=== PATIENT | female | born 1945 | race American Indian/Alaskan Native ===

== ENCOUNTER 2016-11-09 18:04 | Emergency (ER) | payer MEDICARE ==
[2016-11-09] MEDS ORDERED: MOTRIN PO ONE (19:32)
--- NOTE | 2016-11-09 19:58 | Emergency Department Report ---
ED Lower Extremity HPI - General Chief Complaint: Extremity Injury, Lower Stated Complaint: FELL/PAIN RT BIG TOE Time Seen by Provider: 11/09/16 19:16 Source: patient Mode of arrival: Ambulatory Limitations: No Limitations - History of Present Illness Initial Comments: Patient with history of hypertension states she missed a step and fell onto concrete 4 days ago landing on both knees. States she is having throbbing pain in her right great toe. States she is doesn't think it is broken as she is able to move her toes. Denies knee pain or discomfort. Denies weakness, tingling, numbness, fever, chills, break in skin. Denies taking any medication for this, states pain medicine doesn't work for her. Patient states she takes Losartan/HCTZ and is compliant with her meds. Denies s/sx of elevated BP. - Related Data Home Medications Medication Instructions Recorded Confirmed Last Taken Amlodipine Besylate 5 mg PO DAILY 08/22/13 03/19/16 01/01/16 05:00 Clopidogrel Bisulfate [Clopidogrel] 75 mg PO DAILY 08/22/13 03/19/16 12/25/15 Losartan Potassium 100 mg PO DAILY 08/22/13 03/19/16 01/01/16 05:00 Simvastatin 40 mg PO DAILY 08/22/13 03/19/16 12/30/15 Spironolactone [Aldactone] 25 mg PO DAILY 08/22/13 03/19/16 12/31/15 Tramadol HCl 50 mg PO PRN PRN 08/22/13 03/19/16 12/31/15 Aspirin [Aspirin BABY CHEW TAB] 81 mg PO DAILY 08/23/13 03/19/16 12/25/15 Cholecalciferol (Vitamin D3) 1,000 unit PO DAILY 08/23/13 03/19/16 12/31/15 [Vitamin D3] Hydrochlorothiazide [HCTZ] 25 mg PO QDAY 08/23/13 03/19/16 12/31/15 Ranitidine HCl [Ranitidine 150mg 150 mg PO BID 08/23/13 03/19/16 12/30/15 Cap] diphenhydrAMINE [Benadryl CAP] 50 mg PO PRN PRN 08/23/13 03/19/16 12/30/15 Cyclobenzaprine HCl [Flexeril 5mg] 5 mg PO Q8HR PRN 12/26/15 03/19/16 12/30/15 Previous Rx's Medication Instructions Recorded Last Taken Type Oxycodone HCl/Acetaminophen 1 each PO Q6HR PRN #20 tablet 03/05/14 12/30/15 Rx [Percocet 10-325 mg] Cyclobenzaprine [Flexeril] 10 mg PO TID PRN #14 tablet 03/19/16 Unknown Rx HYDROcodone/APAP 5-325 [[employer] 1 - 2 each PO Q6HR PRN #14 tablet 03/19/16 Unknown Rx 5/325] HYDROcodone/APAP 5-325 [[employer] 1 each PO Q6HR PRN #8 tablet 09/14/16 Unknown Rx 5/325] Ibuprofen [Motrin 800 MG tab] 800 mg PO Q8HR PRN #30 tablet 09/14/16 Unknown Rx Ibuprofen [Motrin 800 MG tab] 800 mg PO Q8HR PRN #20 tablet 11/09/16 Unknown Rx Allergies Allergy/AdvReac Type Severity Reaction Status Date / Time codeine AdvReac Mild Itching Verified 08/30/13 07:25 morphine AdvReac Mild Itching Verified 08/30/13 07:25 ED Review of Systems ROS: Stated complaint: FELL/PAIN RT BIG TOE Other details as noted in HPI Comment: All other systems reviewed and negative ED Past Medical Hx - Past Medical History Previous Medical History?: Yes Hx Hypertension: Yes (1961) Hx CVA: Yes Hx Heart Attack/AMI: No Hx GERD: Yes Hx Renal Disease: No Hx Arthritis: Yes Hx Seizures: No Hx Asthma: No Additional medical history: "nerve damage on my left side" - Surgical History Past Surgical History?: Yes Additional Surgical History: hyst. 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 "carotid surgery". ortho surg of left foot - Social History Smoking Status: Never Smoker Substance Use Type: None - Medications Home Medications: Home Medications Medication Instructions Recorded Confirmed Last Taken Type Amlodipine Besylate 5 mg PO DAILY 08/22/13 03/19/16 01/01/16 05:00 History Clopidogrel Bisulfate [Clopidogrel] 75 mg PO DAILY 08/22/13 03/19/16 12/25/15 History Losartan Potassium 100 mg PO DAILY 08/22/13 03/19/16 01/01/16 05:00 History Simvastatin 40 mg PO DAILY 08/22/13 03/19/16 12/30/15 History Spironolactone [Aldactone] 25 mg PO DAILY 08/22/13 03/19/16 12/31/15 History Tramadol HCl 50 mg PO PRN PRN 08/22/13 03/19/16 12/31/15 History Aspirin [Aspirin BABY CHEW TAB] 81 mg PO DAILY 08/23/13 03/19/16 12/25/15 History Cholecalciferol (Vitamin D3) 1,000 unit PO DAILY 08/23/13 03/19/16 12/31/15 History [Vitamin D3] Hydrochlorothiazide [HCTZ] 25 mg PO QDAY 08/23/13 03/19/16 12/31/15 History Ranitidine HCl [Ranitidine 150mg 150 mg PO BID 08/23/13 03/19/16 12/30/15 History Cap] diphenhydrAMINE [Benadryl CAP] 50 mg PO PRN PRN 08/23/13 03/19/16 12/30/15 History Oxycodone HCl/Acetaminophen 1 each PO Q6HR PRN #20 tablet 03/05/14 03/19/1612/11 Rx [Percocet 10-325 mg] Cyclobenzaprine HCl [Flexeril 5mg] 5 mg PO Q8HR PRN 12/26/15 03/19/16 12/30/15 History Cyclobenzaprine [Flexeril] 10 mg PO TID PRN #14 tablet 03/19/16 Unknown Rx HYDROcodone/APAP 5-325 [[employer] 1 - 2 each PO Q6HR PRN #14 tablet 03/19/16 Unknown Rx 5/325] HYDROcodone/APAP 5-325 [[employer] 1 each PO Q6HR PRN #8 tablet 09/14/16 Unknown Rx 5/325] Ibuprofen [Motrin 800 MG tab] 800 mg PO Q8HR PRN #30 tablet 09/14/16 Unknown Rx Ibuprofen [Motrin 800 MG tab] 800 mg PO Q8HR PRN #20 tablet 11/09/16 Unknown Rx ED Physical Exam - General Limitations: No Limitations General appearance: alert, in no apparent distress - Head Head exam: Present: atraumatic, normocephalic - Eye Eye exam: Present: normal appearance - Neck Neck exam: Present: normal inspection - Respiratory Respiratory exam: Present: normal lung sounds bilaterally. Absent: respiratory distress, chest wall tenderness - Cardiovascular Cardiovascular Exam: Present: regular rate, normal rhythm - GI/Abdominal GI/Abdominal exam: Present: soft. Absent: tenderness - Extremities Exam Extremities exam: Present: full ROM, tenderness (w/ mild swelling and ecchymosis media aspect of 1 MTP joint, right great toe.), normal capillary refill, joint swelling (media 1st MTP joint. Rests of foot exam unremarkable b/ l.). Absent: calf tenderness - Back Exam Back exam: Present: normal inspection. Absent: tenderness - Neurological Exam Neurological exam: Present: alert, oriented X3, normal gait, reflexes normal. Absent: motor sensory deficit - Psychiatric Psychiatric exam: Present: normal affect, normal mood - Skin Skin exam: Present: warm, dry, intact. Absent: rash, cyanosis, diaphoretic, erythema, petechiae, pallor, abrasion ED Course Vital Signs 11/09/16 11/09/16 18:28 20:09 Temperature 98.6 F Pulse Rate 83 Respiratory 18 20 Rate Blood Pressure 160/96 O2 Sat by Pulse 99 Oximetry ED Lower Extremity MDM - Radiology Data Radiology results: report reviewed According to radiology report of right foot x-ray, no fracture or dislocation ( see report for details). Critical care attestation.: If time is entered above; I have spent that time in minutes in the direct care of this critically ill patient, excluding procedure time. ED Disposition Clinical Impression: Sprain of metatarsophalangeal joint of great toe, Foot pain, right Disposition: DISCHARGED TO HOME OR SELFCARE Is pt being admited?: No Does the pt Need Aspirin: No Condition: Stable Instructions: Arthralgia (ED) Prescriptions: Ibuprofen [Motrin 800 MG tab] 800 mg PO Q8HR PRN #20 tablet PRN Reason: Pain Referrals: ZULY DE LA GARZA MD [Staff Physician] - 3-5 Days PRIMARY CARE, [Primary Care Provider] - 2-3 Days
--- NOTE | 2016-11-09 20:41 | XRay Report ---
FINAL REPORT EXAM: XR TOE(S) 2 RT HISTORY: R great toes pain and swelling. TECHNIQUE: 3 views right foot PRIORS: None. FINDINGS: No fracture or dislocation identified. Joint spaces are within normal limits. No radiopaque foreign body seen. No soft tissue abnormality identified. IMPRESSION: Negative foot series
[2016-11-09 20:58] VITALS: BP 145/88
== END 2016-11-09 21:04 | disposition home or self-care (01) ==
LOC: ED 18:04
DX: S93.521A Sprain of metatarsophalangeal joint of right great toe, initial encounter (principal); I10 Essential (primary) hypertension; K21.9 Gastro-esophageal reflux disease without esophagitis; Z86.73 Personal history of transient ischemic attack (TIA), and cerebral infarction without residual deficits; W20.8XXA Other cause of strike by thrown, projected or falling object, initial encounter; Y93.9 Activity, unspecified; Y92.9 Unspecified place or not applicable; Y99.9 Unspecified external cause status
CPT/HCPCS: 99283

== ENCOUNTER 2018-06-03 09:54 | Outpatient (CLI) | payer MEDICARE ==
[2018-06-03 10:34] LABS: Blood Urea Nitrogen 18 mg/dL (7-17)
--- NOTE | 2018-06-03 13:23 | Cat Scan Report ---
CT ABDOMEN PELVIS WITH AND WITHOUT CONTRAST: HISTORY: Abdominal pain and weight loss. COMPARISON: CT report dated 11/28/10. TECHNIQUE: Helical CT in 1.25mm intervals before and after IV contrast. Sagittal and coronal reconstructions. FINDINGS: Lung bases: Normal. Liver: Normal. Biliary system: Normal. Pancreas: Normal. Spleen: Normal. Kidneys/ureters/bladder: Normal. Adrenal glands: Normal. Aorta: Mild diffuse calcifications are noted. No aneurysm or dissection. Intestines: There are numerous diverticula in the left hemicolon. No evidence for acute inflammation, mass or obstruction. Appendix: Normal. Pelvic viscera: Hysterectomy. The ovaries are unremarkable. Ascites: None. Adenopathy: None. Musculoskeletal: Intact. Mild thoracolumbar spondylosis is noted. IMPRESSION: Unremarkable CT scan of the abdomen and pelvis with and without contrast. No clear explanation for abdominal pain or weight loss. Diverticulosis of the colon. Atherosclerotic disease in the aorta. Hysterectomy. Thoracolumbar spondylosis.
== END 2018-06-03 09:55 | disposition home or self-care (01) ==
LOC: CT 09:54
PROVIDERS: ATTEND Internal Medicine
DX: K57.90 Diverticulosis of intestine, part unspecified, without perforation or abscess without bleeding (principal); I70.0 Atherosclerosis of aorta; M47.895 Other spondylosis, thoracolumbar region; E78.00 Pure hypercholesterolemia, unspecified; I10 Essential (primary) hypertension; K21.9 Gastro-esophageal reflux disease without esophagitis; M19.90 Unspecified osteoarthritis, unspecified site; Z90.710 Acquired absence of both cervix and uterus; Z86.73 Personal history of transient ischemic attack (TIA), and cerebral infarction without residual deficits
CPT/HCPCS: 36415; 74178; 82565; 84520; Q9967

== ENCOUNTER 2018-06-25 18:21 | Emergency (ER) | payer MEDICARE ==
[2018-06-25 18:49] VITALS: BP 116/74
--- NOTE | 2018-06-25 20:41 | XRay Report ---
FINAL REPORT EXAM: XR KNEE 1-2V LT HISTORY: knee pain, swelling TECHNIQUE: Frontal and lateral views of left knee. PRIORS: None. FINDINGS: Mild degenerative changes in all 3 joint compartments, including spurring or dystrophic calcification/ossification adjacent to superolateral patellar pole. No apparent fracture or dislocation. Soft tissues grossly unremarkable. IMPRESSION: 1. No acute osseous abnormality. 2. Degenerative changes.
--- NOTE | 2018-06-25 21:41 | Emergency Department Report ---
ED Extremity Problem HPI - General Chief complaint: Extremity Problem,Nontraumatic Stated complaint: KNEE/PAIN Time Seen by Provider: 06/25/18 21:23 Source: patient Mode of arrival: Wheelchair Limitations: No Limitations - History of Present Illness Initial comments: 72-year-old [place] female comes in complaining of left knee pain and swelling. Patient denies any trauma. She does have a history of arthritis. She has been getting Percocet from Dr. Oconnor with her primary care provider. This the first time patient reports having an x-ray done on her knee. MD Complaint: extremity pain Location: left, knee History of Same: Yes Severity scale (0 -10): 7 - Related Data Home Medications Medication Instructions Recorded Confirmed Last Taken Amlodipine Besylate 5 mg PO DAILY 08/22/13 03/19/16 01/01/16 05:00 Clopidogrel Bisulfate [Clopidogrel] 75 mg PO DAILY 08/22/13 03/19/16 12/25/15 Losartan Potassium 100 mg PO DAILY 08/22/13 03/19/16 01/01/16 05:00 Simvastatin 40 mg PO DAILY 08/22/13 03/19/16 12/30/15 Spironolactone [Aldactone] 25 mg PO DAILY 08/22/13 03/19/16 12/31/15 Tramadol HCl 50 mg PO PRN PRN 08/22/13 03/19/16 12/31/15 Aspirin [Aspirin BABY CHEW TAB] 81 mg PO DAILY 08/23/13 03/19/16 12/25/15 Cholecalciferol (Vitamin D3) 1,000 unit PO DAILY 08/23/13 03/19/16 12/31/15 [Vitamin D3] diphenhydrAMINE [Benadryl CAP] 50 mg PO PRN PRN 08/23/13 03/19/16 12/30/15 hydroCHLOROthiazide [HCTZ] 25 mg PO QDAY 08/23/13 03/19/16 12/31/15 raNITIdine HCl [Ranitidine 150mg 150 mg PO BID 08/23/13 03/19/16 12/30/15 Cap] Cyclobenzaprine HCl [Flexeril 5mg] 5 mg PO Q8HR PRN 12/26/15 03/19/16 12/30/15 Previous Rx's Medication Instructions Recorded Last Taken Type Oxycodone HCl/Acetaminophen 1 each PO Q6HR PRN #20 tablet 03/05/14 12/30/15 Rx [Percocet 10-325 mg] Cyclobenzaprine [Flexeril] 10 mg PO TID PRN #14 tablet 03/19/16 Unknown Rx HYDROcodone/APAP 5-325 [[employer] 1 - 2 each PO Q6HR PRN #14 tablet 03/19/16 Unknown Rx 5/325] HYDROcodone/APAP 5-325 [[employer] 1 each PO Q6HR PRN #8 tablet 09/14/16 Unknown Rx 5/325] Ibuprofen [Motrin 800 MG tab] 800 mg PO Q8HR PRN #30 tablet 09/14/16 Unknown Rx Ibuprofen [Motrin 800 MG tab] 800 mg PO Q8HR PRN #20 tablet 11/09/16 Unknown Rx Ibuprofen [Motrin 600 MG tab] 600 mg PO Q8H PRN #30 tablet 06/25/18 Unknown Rx Allergies Allergy/AdvReac Type Severity Reaction Status Date / Time codeine AdvReac Mild Itching Verified 08/30/13 07:25 morphine AdvReac Mild Itching Verified 08/30/13 07:25 ED Review of Systems ROS: Stated complaint: KNEE/PAIN Other details as noted in HPI Musculoskeletal: joint swelling (left), arthralgia (left) ED Past Medical Hx - Past Medical History Hx Hypertension: Yes (1961) Hx CVA: Yes Hx Heart Attack/AMI: No Hx GERD: Yes Hx Renal Disease: No Hx Arthritis: Yes Hx Seizures: No Hx Asthma: No Additional medical history: "nerve damage on my left side" - Surgical History Past Surgical History?: Yes Additional Surgical History: hyst. 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 "carotid surgery". ortho surg of left foot - Social History Smoking Status: Never Smoker Substance Use Type: None - Medications Home Medications: Home Medications Medication Instructions Recorded Confirmed Last Taken Type Amlodipine Besylate 5 mg PO DAILY 08/22/13 03/19/16 01/01/16 05:00 History Clopidogrel Bisulfate [Clopidogrel] 75 mg PO DAILY 08/22/13 03/19/16 12/25/15 History Losartan Potassium 100 mg PO DAILY 08/22/13 03/19/16 01/01/16 05:00 History Simvastatin 40 mg PO DAILY 08/22/13 03/19/16 12/30/15 History Spironolactone [Aldactone] 25 mg PO DAILY 08/22/13 03/19/16 12/31/15 History Tramadol HCl 50 mg PO PRN PRN 08/22/13 03/19/16 12/31/15 History Aspirin [Aspirin BABY CHEW TAB] 81 mg PO DAILY 08/23/13 03/19/16 12/25/15 History Cholecalciferol (Vitamin D3) 1,000 unit PO DAILY 08/23/13 03/19/16 12/31/15 History [Vitamin D3] diphenhydrAMINE [Benadryl CAP] 50 mg PO PRN PRN 08/23/13 03/19/16 12/30/15 History hydroCHLOROthiazide [HCTZ] 25 mg PO QDAY 08/23/13 03/19/16 12/31/15 History raNITIdine HCl [Ranitidine 150mg 150 mg PO BID 08/23/13 03/19/16 12/30/15 History Cap] Oxycodone HCl/Acetaminophen 1 each PO Q6HR PRN #20 tablet 03/05/14 03/19/1612/11 Rx [Percocet 10-325 mg] Cyclobenzaprine HCl [Flexeril 5mg] 5 mg PO Q8HR PRN 12/26/15 03/19/16 12/30/15 History Cyclobenzaprine [Flexeril] 10 mg PO TID PRN #14 tablet 03/19/16 Unknown Rx HYDROcodone/APAP 5-325 [[employer] 1 - 2 each PO Q6HR PRN #14 tablet 03/19/16 Unknown Rx 5/325] HYDROcodone/APAP 5-325 [[employer] 1 each PO Q6HR PRN #8 tablet 09/14/16 Unknown Rx 5/325] Ibuprofen [Motrin 800 MG tab] 800 mg PO Q8HR PRN #30 tablet 09/14/16 Unknown Rx Ibuprofen [Motrin 800 MG tab] 800 mg PO Q8HR PRN #20 tablet 11/09/16 Unknown Rx Ibuprofen [Motrin 600 MG tab] 600 mg PO Q8H PRN #30 tablet 06/25/18 Unknown Rx ED Physical Exam - General Limitations: No Limitations General appearance: alert, in no apparent distress - Head Head exam: Present: atraumatic, normocephalic - Eye Eye exam: Present: normal appearance - ENT ENT exam: Present: mucous membranes moist - Respiratory Respiratory exam: Present: normal lung sounds bilaterally. Absent: respiratory distress - Cardiovascular Cardiovascular Exam: Present: regular rate, normal rhythm. Absent: systolic murmur, diastolic murmur, rubs, gallop - Expanded Lower Extremity Exam Left Upper Leg exam: Present: normal inspection, full ROM. Absent: tenderness Knee exam: Present: full ROM, tenderness, crepidus. Absent: swelling (medial aspect), abrasion, laceration, ecchymosis, deformity Lower Leg exam: Present: normal inspection, full ROM, tenderness. Absent: swelling Ankle exam: Present: normal inspection, full ROM. Absent: tenderness Neuro vascular tendon exam: Present: no vascular compromise - Neurological Exam Neurological exam: Present: alert, oriented X3 - Psychiatric Psychiatric exam: Present: normal affect, normal mood - Skin Skin exam: Present: warm, dry, intact, normal color. Absent: rash ED Course Vital Signs 06/25/18 18:47 Temperature 98.2 F Pulse Rate 89 Respiratory 20 Rate Blood Pressure 116/74 O2 Sat by Pulse 98 Oximetry ED Medical Decision Making - Radiology Data Radiology results: report reviewed FINAL REPORT EXAM: XR KNEE 1-2V LT HISTORY: knee pain, swelling TECHNIQUE: Frontal and lateral views of left knee. PRIORS: None. FINDINGS: Mild degenerative changes in all 3 joint compartments, including spurring or dystrophic calcification/ossification adjacent to superolateral patellar pole. No apparent fracture or dislocation. Soft tissues grossly unremarkable. IMPRESSION: 1. No acute osseous abnormality. 2. Degenerative changes. Transcribed By: [facility] Dictated By: EWELINA RAJAN MD Electronically Authenticated By: EWELINA RAJAN MD Signed Date/Time: 06/25/182038 DD/ 38 TD/TT: 06/25/182038 - Medical Decision Making Patient is evaluated by this provider fast track. Patient comes in with a nontraumatic left knee pain X-ray shows patient have degenerative joint disease Discussed the patient is with a chronic osteoarthritis Referral to orthopedist Prescription for Motrin Critical care attestation.: If time is entered above; I have spent that time in minutes in the direct care of this critically ill patient, excluding procedure time. ED Disposition Clinical Impression: Left knee DJD Qualifiers: Osteoarthritis type: primary Qualified Code(s): M17.12 - Unilateral primary osteoarthritis, left knee Disposition: TO HOME OR SELFCARE Is pt being admited?: No Does the pt Need Aspirin: No Condition: Stable Instructions: Osteoarthritis (ED), Self-Care Measures with a Chronic Disease ( ED) Additional Instructions: Please take pain medication as needed. Please follow up with her primary care provider or orthopedics. I have listed to below for your convenience Prescriptions: Ibuprofen [Motrin 600 MG tab] 600 mg PO Q8H PRN #30 tablet PRN Reason: Pain Referrals: AMBAR HATFIELD MD [Primary Care Provider] - 3-5 Days WINTER PAEZ MD [Staff Physician] - 3-5 Days ANDREIA SHAH MD [Staff Physician] - 3-5 Days Forms: Accompanied Note
== END 2018-06-25 22:04 | disposition home or self-care (01) ==
LOC: ED 18:21
DX: M17.12 Unilateral primary osteoarthritis, left knee (principal); K21.9 Gastro-esophageal reflux disease without esophagitis; Z79.82 Long term (current) use of aspirin; Z88.5 Allergy status to narcotic agent
CPT/HCPCS: 99283

== ENCOUNTER 2020-08-13 16:21 | Emergency (ER) | payer MEDICARE ==
[2020-08-13 17:08] VITALS: BP 142/70
== END 2020-08-13 19:40 | disposition left against medical advice (07) ==
LOC: ED 16:21
DX: R10.9 Unspecified abdominal pain (principal); Z53.21 Procedure and treatment not carried out due to patient leaving prior to being seen by health care provider

== ENCOUNTER 2021-10-24 11:12 | Emergency (ER) | payer MEDICARE ==
[2021-10-24] MEDS ORDERED: HYDROcodone/ACETAMINOPHEN 5-325 MG TAB PO ONE (12:45)
--- NOTE | 2021-10-24 12:52 | Emergency Department Report ---
ED General Adult HPI - General Chief complaint: Extremity Injury, Lower Stated complaint: PAIN Time Seen by Provider: 10/24/21 12:44 Source: patient Mode of arrival: Ambulatory Limitations: No Limitations - History of Present Illness Initial comments: 76-year-old -[place] female patient presents with complaints of bilateral leg pain and spasms starting last night. Patient states a history of recurrent leg spasms for many years. She states he normally takes Flexeril, however he has not been working lately. Patient states the pain is different in her legs this time and rates it as a 8/10 in severity. She is currently on Plavix. No history of DVT/PE, recent long travel/surgeries, chest pain, shortness of breath, or hemoptysis per patient. History of stomach cancer per patient. She also complains of sudden onset of right great toe pain for the past few days without injury. No history of gout. She also denies any fever/chills/sweats or difficulty moving her limbs or back pain. - Related Data Home Medications Medication Instructions Recorded Confirmed Last Taken Amlodipine Besylate 5 mg PO DAILY 08/22/13 03/19/16 01/01/16 05:00 Clopidogrel Bisulfate [Clopidogrel] 75 mg PO DAILY 08/22/13 03/19/16 12/25/15 Losartan Potassium 100 mg PO DAILY 08/22/13 03/19/16 01/01/16 05:00 Simvastatin 40 mg PO DAILY 08/22/13 03/19/16 12/30/15 Spironolactone [Aldactone] 25 mg PO DAILY 08/22/13 03/19/16 12/31/15 Tramadol HCl 50 mg PO PRN PRN 08/22/13 03/19/16 12/31/15 Aspirin [Aspirin BABY CHEW TAB] 81 mg PO DAILY 08/23/13 03/19/16 12/25/15 Cholecalciferol (Vitamin D3) 1,000 unit PO DAILY 08/23/13 03/19/16 12/31/15 [Vitamin D3] diphenhydrAMINE [Benadryl CAP] 50 mg PO PRN PRN 08/23/13 03/19/16 12/30/15 hydroCHLOROthiazide [HCTZ] 25 mg PO QDAY 08/23/13 03/19/16 12/31/15 raNITIdine HCL [Ranitidine 150mg 150 mg PO BID 08/23/13 03/19/16 12/30/15 Cap] Cyclobenzaprine HCl [Flexeril 5mg] 5 mg PO Q8HR PRN 12/26/15 03/19/16 12/30/15 Previous Rx's Medication Instructions Recorded Last Taken Type Oxycodone HCl/Acetaminophen 1 each PO Q6HR PRN #20 tablet 03/05/14 12/30/15 Rx [Percocet 10-325 mg] Cyclobenzaprine [Flexeril] 10 mg PO TID PRN #14 tablet 03/19/16 Unknown Rx HYDROcodone/APAP 5-325 [Jackson 1 - 2 each PO Q6HR PRN #14 tablet 03/19/16 Unknown Rx 5/325] HYDROcodone/APAP 5-325 [Jackson 1 each PO Q6HR PRN #8 tablet 09/14/16 Unknown Rx 5/325] Ibuprofen [Motrin 800 MG tab] 800 mg PO Q8HR PRN #30 tablet 09/14/16 Unknown Rx Ibuprofen [Motrin 800 MG tab] 800 mg PO Q8HR PRN #20 tablet 11/09/16 Unknown Rx Ibuprofen [Motrin 600 MG tab] 600 mg PO Q8H PRN #30 tablet 06/25/18 Unknown Rx methocarbamoL [Methocarbamol] 500 mg PO BID PRN #15 tab 10/24/21 Unknown Rx predniSONE 10 mg PO BID 3 Days #6 tab 10/24/21 Unknown Rx Allergies Allergy/AdvReac Type Severity Reaction Status Date / Time codeine AdvReac Mild Itching Verified 08/30/13 07:25 morphine AdvReac Mild Itching Verified 08/30/13 07:25 ED Review of Systems ROS: Stated complaint: PAIN Other details as noted in HPI Constitutional: denies: chills, diaphoresis, fever, malaise, weakness Musculoskeletal: joint swelling, arthralgia. 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 "carotid surgery". ortho surg of left foot - Social History Smoking Status: Never Smoker Substance Use Type: None - Medications Home Medications: Home Medications Medication Instructions Recorded Confirmed Last Taken Type Amlodipine Besylate 5 mg PO DAILY 08/22/13 03/19/16 01/01/16 05:00 History Clopidogrel Bisulfate [Clopidogrel] 75 mg PO DAILY 08/22/13 03/19/16 12/25/15 History Losartan Potassium 100 mg PO DAILY 08/22/13 03/19/16 01/01/16 05:00 History Simvastatin 40 mg PO DAILY 08/22/13 03/19/16 12/30/15 History Spironolactone [Aldactone] 25 mg PO DAILY 08/22/13 03/19/16 12/31/15 History Tramadol HCl 50 mg PO PRN PRN 08/22/13 03/19/16 12/31/15 History Aspirin [Aspirin BABY CHEW TAB] 81 mg PO DAILY 08/23/13 03/19/16 12/25/15 History Cholecalciferol (Vitamin D3) 1,000 unit PO DAILY 08/23/13 03/19/16 12/31/15 History [Vitamin D3] diphenhydrAMINE [Benadryl CAP] 50 mg PO PRN PRN 08/23/13 03/19/16 12/30/15 History hydroCHLOROthiazide [HCTZ] 25 mg PO QDAY 08/23/13 03/19/16 12/31/15 History raNITIdine HCL [Ranitidine 150mg 150 mg PO BID 08/23/13 03/19/16 12/30/15 History Cap] Oxycodone HCl/Acetaminophen 1 each PO Q6HR PRN #20 tablet 03/05/14 03/19/16 12/30/15 Rx [Percocet 10-325 mg] Cyclobenzaprine HCl [Flexeril 5mg] 5 mg PO Q8HR PRN 12/26/15 03/19/16 12/30/15 History Cyclobenzaprine [Flexeril] 10 mg PO TID PRN #14 tablet 03/19/16 Unknown Rx HYDROcodone/APAP 5-325 [Jackson 1 - 2 each PO Q6HR PRN #14 tablet 06/22/16 Unknown Rx 5/325] HYDROcodone/APAP 5-325 [Jackson 1 each PO Q6HR PRN #8 tablet 09/14/16 Unknown Rx 5/325] Ibuprofen [Motrin 800 MG tab] 800 mg PO Q8HR PRN #30 tablet 09/14/16 Unknown Rx Ibuprofen [Motrin 800 MG tab] 800 mg PO Q8HR PRN #20 tablet 11/09/16 Unknown Rx Ibuprofen [Motrin 600 MG tab] 600 mg PO Q8H PRN #30 tablet 06/25/18 Unknown Rx methocarbamoL [Methocarbamol] 500 mg PO BID PRN #15 tab 10/24/21 Unknown Rx predniSONE 10 mg PO BID 3 Days #6 tab 10/24/21 Unknown Rx ED Physical Exam - General Limitations: No Limitations General appearance: alert, in no apparent distress - Head Head exam: Present: atraumatic, normocephalic - Eye Eye exam: Present: normal appearance. Absent: scleral icterus - Neck Neck exam: Present: normal inspection - Respiratory Respiratory exam: Absent: respiratory distress - Cardiovascular Cardiovascular Exam: Present: regular rate, normal rhythm - Extremities Exam Extremities exam: Present: calf tenderness (bilateral, no skin changes noted ), other (ttp with mild warmth and redness noted to right first MT joint ) - Neurological Exam Neurological exam: Present: alert, oriented X3 - Psychiatric Psychiatric exam: Present: normal affect, normal mood - Skin Skin exam: Present: warm, dry, intact. Absent: rash ED Course Vital Signs 10/24/21 11:30 Temperature 97.9 F Pulse Rate 94 H Respiratory 18 Rate Blood Pressure 123/79 O2 Sat by Pulse 97 Oximetry ED Medical Decision Making - Lab Data Result diagrams: 10/24/21 14:34 10/24/21 14:34 Lab Results 10/24/21 10/24/21 Range/Units 14:34 14:34 WBC 8.3 (4.5-11.0) K/mm3 RBC 3.77 (3.65-5.03) M/mm3 Hgb 10.3 (10.1-14.3) gm/dl Hct 32.7 (30.3-42.9) % MCV 87 (79-97) fl MCH 27 L (28-32) pg MCHC 31 (30-34) % RDW 15.4 H (13.2-15.2) % Plt Count 271 (140-440) K/mm3 Lymph % (Auto) 26.8 (13.4-35.0) % Vil[place] % (Auto) 4.8 (0.0-7.3) % Eos % (Auto) 2.1 (0.0-4.3) % Baso % (Auto) 0.4 (0.0-1.8) % Lymph # (Auto) 2.2 (1.2-5.4) K/mm3 Vil[place] # (Auto) 0.4 (0.0-0.8) K/mm3 Eos # (Auto) 0.2 (0.0-0.4) K/mm3 Baso # (Auto) 0.0 (0.0-0.1) K/mm3 Seg Neutrophils % 65.9 (40.0-70.0) % Seg Neutrophils # 5.5 (1.8-7.7) K/mm3 Sodium 140 (137-145) mmol/L Potassium 4.3 (3.6-5.0) mmol/L Chloride 106.1 (98-107) mmol/L Carbon Dioxide 22 (22-30) mmol/L Anion Gap 16 mmol/L BUN 43 H (7-17) mg/dL Creatinine 1.4 H (0.6-1.2) mg/dL Estimated GFR 44 ml/min BUN/Creatinine Ratio 31 % Glucose 126 H (65-100) mg/dL Uric Acid 9.4 H (3.5-7.6) mg/dL Calcium 9.5 (8.4-10.2) mg/dL - Medical Decision Making 76-year-old -[place] female patient presents with complaints of bilateral leg pain and spasms starting last night. Patient states a history of recurrent leg spasms for many years. She states he normally takes Flexeril, however he has not been working lately. Patient states the pain is different in her legs this time and rates it as a 8/10 in severity. She is currently on Plavix. No history of DVT/PE, recent long travel/surgeries, chest pain, shortness of breath, or hemoptysis per patient. History of stomach cancer per patient. She also complains of sudden onset of right great toe pain for the past few days without injury. No history of gout. She also denies any fever/chills/sweats or difficulty moving her limbs or back pain. Mild kidney dysfunction noted on labs. Recommend patient follows up with her primary care, Dr. Hatfield, within 1 week for a recheck. Uric acid is elevated. Upon review of patient's prior visits, she had similar pain in 2018 in the same toe without injury. I suspect patient does have gout. Will treat with prednisone. She states her pain has resolved with meds given here in ED. She is well-appearing and stable for discharge home. Discussed signs and symptoms that should prompt immediate return to the ED with patient who verbalizes understand Critical care attestation.: If time is entered above; I have spent that time in minutes in the direct care of this critically ill patient, excluding procedure time. ED Disposition Clinical Impression: Gout involving toe Disposition: 01 HOME / SELF CARE / HOMELESS Is pt being admited?: No Condition: Stable Additional Instructions: What is gout? Gout is a form of arthritis. It can cause pain and swelling in the joints. At first, it tends to affect only 1 joint most frequently the big toe. It happens in people who have too much uric acid in the blood. Uric acid is a chemical that is produced when the body breaks down certain foods. Uric acid can form sharp needle-like crystals that build up in the joints and cause pain. Uric acid crystals can also form inside the tubes that carry urine from the kidneys to the bladder. These crystals can turn into "kidney stones" that can cause pain and problems with the flow of urine. What are the symptoms of gout? People with gout get sudden "flares" or attacks of severe pain, most often the big toe, ankle, or knee. Often the joint also turns red and swells. Usually, only 1 joint is affected, but some people have pain in more than 1 joint. Gout flares tend to happen more often during the night. The pain from gout can be extreme. The pain and swelling are worst at the beginning of a gout flare. The symptoms then get better within a few days to weeks. It is not clear how the body "turns off" a gout flare. Is there a test for gout? Yes. To test you for gout, your doctor or nurse can take a sample of fluid from the joint that is in pain. If they find typical gout crystals in the fluid, then you have gout. Even without checking fluid from a joint, the doctor or nurse might still strongly suspect gout if: ?You have had pain and swelling in 1 joint, especially the joint at the base of the big toe ?Your symptoms completely go away between flares, at least when you first start having them ?Your blood tests show high levels of uric acid How is gout treated? There are a few medicines that can reduce the pain and swelling caused by gout. When you find one that works for you, make sure to keep it on hand all the time. That way you can take it as soon you feel a flare starting. Gout medicines work best if you take them as soon as symptoms start. The medicines used to treat gout flares include: ?NSAIDs This is a large group of medicines that includes ibuprofen (sample brand names: Advil, Motrin) and indomethacin (brand name: Indocin). NSAIDs might not be safe for people with kidney or liver disease, or for people who have bleeding problems. ?Colchicine This medicine helps with gout but it can also cause diarrhea, nausea, vomiting, and stomach pain. ?Steroids Steroids can reduce swelling and pain. These steroids are not the kind that athletes take to build up muscle. Steroids can be taken as pills or as shots. Are there medicines to prevent gout flares? Yes, there are medicines that can reduce the chances of having future gout flares. Most people who have repeated or severe flares of gout need to take these medicines. In general, they all work by reducing the amount of uric acid in the blood. Examples of these medicines include allopurinol (brand names: Aloprim, Zyloprim), febuxostat (brand name: Uloric), and probenecid. People with severe gout can also get a medicine called pegloticase (brand name: Krystexxa), which is given through a vein. This medicine can cause an allergic reaction in some people. If you take one of the medicines to prevent gout, your doctor or nurse will want to make sure you use it safely. They might also want to check that your uric acid level gets low enough to dissolve the gout crystals. Allopurinol, febuxostat, and probenecid can actually increase gout flares when you first start taking them. To prevent these flares, your doctor or nurse might suggest that you take low doses of colchicine when you start the medicines. This will give the gout crystals time to dissolve, and that will put a stop to the flares over time. If you do have a gout flare, it's important to keep taking your daily medicines normally. Your doctor will check your uric acid levels regularly. This is to make sure the medicines are working and you are taking the right dose. Can I do anything on my own to prevent gout flares? Yes. If you are overweight, losing weight can help relieve gout. It's not clear that following a specific diet plan will help with gout symptoms. But eating a balanced diet can help improve your overall health. It can also help you lose weight, if you are overweight. In general, a healthy diet includes plenty of fruits, vegetables, whole grains, and low-fat dairy products. It's also important to drink plenty of water, and try not to get dehydrated. You should limit sugary drinks and alcohol, which can make gout flares worse. Some people with gout also have other health problems, such as heart disease, high blood pressure, kidney disease, or obesity. If you have any of these issues, it's important to work with your doctor to manage them. This can help improve your overall health and might also help with your gout. Prescriptions: methocarbamoL [Methocarbamol] 500 mg PO BID PRN #15 tab PRN Reason: muscle spasms predniSONE 10 mg PO BID 3 Days #6 tab Referrals: AMBAR HATFIELD MD [Primary Care Provider] - 3-5 Days
--- NOTE | 2021-10-24 13:27 | XRay Report ---
XR foot 3+V RT INDICATION: acute 1st MT pain, redness, swelling. COMPARISON: Prior exam 11/09/2016 FINDINGS: No acute fracture or dislocation. There is mild soft tissue swelling on the medial forefoot medial to the first MTP joint. There is diffuse joint space narrowing at the IP joints and first MTP joint. There is subtle cortical cystic change medial aspect of the first metatarsal head. IMPRESSION: 1. Joint space narrowing pattern is suggestive of osteoarthrosis. There is mild subcortical cystic ch james along the medial aspect of the first metatarsal head; however, no discrete erosion or cortical d estruction is seen. Mild adjacent soft tissue swelling is noted medially. Signer Name: Chaitanya Rich MD Signed: 10/24/2021 1:23 PM Workstation Name: [id number]
[2021-10-24 14:56] LABS: Basophils % (Auto) 0.4 % (0.0-1.8); Eosinophils # (Auto) 0.2 K/mm3 (0.0-0.4); Eosinophils % (Auto) 2.1 % (0.0-4.3); Hematocrit 32.7 % (30.3-42.9); Hemoglobin 10.3 gm/dl (10.1-14.3); Lymphocytes # (Auto) 2.2 K/mm3 (1.2-5.4); Lymphocytes % (Auto) 26.8 % (13.4-35.0); Mean Corpuscular HGB Conc 31 % (30-34); Mean Corpuscular Volume 87 fl (79-97); Monocytes # (Auto) 0.4 K/mm3 (0.0-0.8); Monocytes % (Auto) 4.8 % (0.0-7.3); Platelet Count 271 K/mm3 (140-440); Red Blood Count 3.77 M/mm3 (3.65-5.03); Red Cell Distribution Width 15.4 % (13.2-15.2)
[2021-10-24 15:10] LABS: Calcium 9.5 mg/dL (8.4-10.2); Uric Acid 9.4 mg/dL (3.5-7.6)
[2021-10-24 15:44] VITALS: BP 135/80
== END 2021-10-24 15:46 | disposition home or self-care (01) ==
LOC: ED 11:12
DX: M10.9 Gout, unspecified (principal); I10 Essential (primary) hypertension
CPT/HCPCS: 36415; 80048; 84550; 85025; 99283

== ENCOUNTER 2022-03-07 11:54 | Emergency (ER) | payer MEDICARE ==
--- NOTE | 2022-03-07 15:47 | Cat Scan Report ---
NONENHANCED CT SCAN OF THE HEAD: INDICATION / CLINICAL INFORMATION: 76 years Female; headache. TECHNIQUE: Routine CT head without contrast. All CT scans at this location are performed using CT dos e reduction for ALARA by means of automated exposure control. COMPARISON: None. FINDINGS: BRAIN / INTRACRANIAL CONTENTS: No acute hemorrhage, mass effect, midline shift, hydrocephalus, or acu te, large territorial infarct. 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 ORBITS: No significant abnormality of visualized orbits. SINUSES / MASTOIDS: No significant abnormality of the visualized paranasal sinuses or mastoid air mary ls. ADDITIONAL FINDINGS: None. 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
[2022-03-07] MEDS ORDERED: fentaNYL 100 MCG/2 ML INJ IV ONE (16:23)
[2022-03-07] MEDS ORDERED: ONDANSETRON 4 MG/2 ML INJ IV ONE (16:23)
[2022-03-07] MEDS ORDERED: SODIUM CHLORIDE 0.9% IV ONE (17:00)
[2022-03-07] MEDS ORDERED: METHOCARBAMOL IV ONE (17:00)
[2022-03-07] MEDS ORDERED: diphenhydrAMINE 50 MG/ML VIAL IV ONE (18:17)
[2022-03-07] MEDS ORDERED: METOCLOPRAMIDE 10 MG/2 ML INJ IV ONE (18:18)
[2022-03-07] MEDS ORDERED: BUTALB/ACETAMINOPHEN/CAFFEINE TAB PO ONE ×2 (18:18→19:10)
--- NOTE | 2022-03-07 18:41 | Emergency Department Report ---
ED General Adult HPI - General Chief complaint: Headache Stated complaint: NECK AND HEAD PAIN Time Seen by Provider: 03/07/22 15:53 Source: patient Mode of arrival: Ambulatory Limitations: No Limitations - History of Present Illness Initial comments: Patient presents to the emergency department the chief complaint of a headache that is been present for a day. Patient states she is taking Flexeril at home to no avail. Patient dates the headache is located in the back of her head and radiates down to her neck. She does complain of some dizziness with a headache. Patient states this headache is increased in intensity when compared to others. Patient denies chest pain, shortness breath, or abdominal pain. -: Sudden Location: head Severity scale (0 -10): 10 Quality: other (Throbbing) Consistency: constant Improves with: none Worsens with: none Treatments Prior to Arrival: none - Related Data Home Medications Medication Instructions Recorded Confirmed Last Taken Amlodipine Besylate 5 mg PO DAILY 08/22/13 03/19/16 01/01/16 05:00 Clopidogrel Bisulfate [Clopidogrel] 75 mg PO DAILY 08/22/13 03/19/16 12/25/15 Losartan Potassium 100 mg PO DAILY 08/22/13 03/19/16 01/01/16 05:00 Simvastatin 40 mg PO DAILY 08/22/13 03/19/16 12/30/15 Spironolactone [Aldactone] 25 mg PO DAILY 08/22/13 03/19/16 12/31/15 Tramadol HCl 50 mg PO PRN PRN 08/22/13 03/19/16 12/31/15 Aspirin [Aspirin BABY CHEW TAB] 81 mg PO DAILY 08/23/13 03/19/16 12/25/15 Cholecalciferol (Vitamin D3) 1,000 unit PO DAILY 08/23/13 03/19/16 12/31/15 [Vitamin D3] diphenhydrAMINE [Benadryl CAP] 50 mg PO PRN PRN 08/23/13 03/19/16 12/30/15 hydroCHLOROthiazide [HCTZ] 25 mg PO QDAY 08/23/13 03/19/16 12/31/15 raNITIdine HCL [Ranitidine 150mg 150 mg PO BID 08/23/13 03/19/16 12/30/15 Cap] Cyclobenzaprine HCl [Flexeril 5mg] 5 mg PO Q8HR PRN 12/26/15 03/19/16 12/30/15 Previous Rx's Medication Instructions Recorded Last Taken Type Oxycodone HCl/Acetaminophen 1 each PO Q6HR PRN #20 tablet 03/05/14 12/30/15 Rx [Percocet 10-325 mg] Cyclobenzaprine [Flexeril] 10 mg PO TID PRN #14 tablet 03/19/16 Unknown Rx HYDROcodone/APAP 5-325 [[place] 1 - 2 each PO Q6HR PRN #14 tablet 03/19/16 Unknown Rx 5/325] HYDROcodone/APAP 5-325 [[place] 1 each PO Q6HR PRN #8 tablet 09/14/16 Unknown Rx 5/325] Ibuprofen [Motrin 800 MG tab] 800 mg PO Q8HR PRN #30 tablet 09/14/16 Unknown Rx Ibuprofen [Motrin 800 MG tab] 800 mg PO Q8HR PRN #20 tablet 11/09/16 Unknown Rx Ibuprofen [Motrin 600 MG tab] 600 mg PO Q8H PRN #30 tablet 06/25/18 Unknown Rx methocarbamoL [Methocarbamol] 500 mg PO BID PRN #15 tab 10/24/21 Unknown Rx predniSONE 10 mg PO BID 3 Days #6 tab 10/24/21 Unknown Rx Butalb/Acetamin/Caff 50-325-40 1 tab PO Q6HR PRN #24 tab 03/07/22 Unknown Rx [Fioricet] Butalb/Acetamin/Caff 50-325-40 1 tab PO Q6HR PRN #24 tab 03/07/22 Unknown Rx [Fioricet] Butalb/Acetaminophen/Caffeine 1 cap PO Q6HR PRN #24 cap 03/07/22 Unknown Rx [Fioricet 50-300-40 mg CAP] methOCARBAMOL [Robaxin TAB] 500 mg PO BID #20 tab 03/07/22 Unknown Rx Allergies Allergy/AdvReac Type Severity Reaction Status Date / Time codeine AdvReac Mild Itching Verified 08/30/13 07:25 morphine AdvReac Mild Itching Verified 08/30/13 07:25 ED Review of Systems ROS: Stated complaint: NECK AND HEAD PAIN Other details as noted in HPI Comment: All other systems reviewed and negative Constitutional: denies: chills, fever Eyes: denies: eye pain, eye discharge, vision change ENT: denies: ear pain, throat pain Respiratory: denies: cough, shortness of breath, wheezing Cardiovascular: denies: chest pain, palpitations Endocrine: no symptoms reported Gastrointestinal: denies: abdominal pain, nausea, diarrhea Genitourinary: denies: urgency, dysuria, discharge Musculoskeletal: denies: back pain, joint swelling, arthralgia Skin: denies: rash, lesions Neurological: headache. 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 "carotid surgery". ortho surg of left foot - Social History Smoking Status: Never Smoker Substance Use Type: None - Medications Home Medications: Home Medications Medication Instructions Recorded Confirmed Last Taken Type Amlodipine Besylate 5 mg PO DAILY 08/22/13 03/19/16 01/01/16 05:00 History Clopidogrel Bisulfate [Clopidogrel] 75 mg PO DAILY 08/22/13 03/19/16 12/25/15 History Losartan Potassium 100 mg PO DAILY 08/22/13 03/19/16 01/01/16 05:00 History Simvastatin 40 mg PO DAILY 08/22/13 03/19/16 12/30/15 History Spironolactone [Aldactone] 25 mg PO DAILY 08/22/13 03/19/16 12/31/15 History Tramadol HCl 50 mg PO PRN PRN 08/22/13 03/19/16 12/31/15 History Aspirin [Aspirin BABY CHEW TAB] 81 mg PO DAILY 08/23/13 03/19/16 12/25/15 History Cholecalciferol (Vitamin D3) 1,000 unit PO DAILY 08/23/13 03/19/16 12/31/15 History [Vitamin D3] diphenhydrAMINE [Benadryl CAP] 50 mg PO PRN PRN 08/23/13 03/19/16 12/30/15 History hydroCHLOROthiazide [HCTZ] 25 mg PO QDAY 08/23/13 03/19/16 12/31/15 History raNITIdine HCL [Ranitidine 150mg 150 mg PO BID 08/23/13 03/19/16 12/30/15 History Cap] Oxycodone HCl/Acetaminophen 1 each PO Q6HR PRN #20 tablet 03/05/14 03/19/16 12/30/15 Rx [Percocet 10-325 mg] Cyclobenzaprine HCl [Flexeril 5mg] 5 mg PO Q8HR PRN 12/26/15 03/19/16 12/30/15 History Cyclobenzaprine [Flexeril] 10 mg PO TID PRN #14 tablet 03/19/16 Unknown Rx HYDROcodone/APAP 5-325 [[place] 1 - 2 each PO Q6HR PRN #14 tablet 03/19/16 Unknown Rx 5/325] HYDROcodone/APAP 5-325 [[place] 1 each PO Q6HR PRN #8 tablet 09/14/16 Unknown Rx 5/325] Ibuprofen [Motrin 800 MG tab] 800 mg PO Q8HR PRN #30 tablet 09/14/16 Unknown Rx Ibuprofen [Motrin 800 MG tab] 800 mg PO Q8HR PRN #20 tablet 11/09/16 Unknown Rx Ibuprofen [Motrin 600 MG tab] 600 mg PO Q8H PRN #30 tablet 06/25/18 Unknown Rx methocarbamoL [Methocarbamol] 500 mg PO BID PRN #15 tab 10/24/21 Unknown Rx predniSONE 10 mg PO BID 3 Days #6 tab 10/24/21 Unknown Rx Butalb/Acetamin/Caff 50-325-40 1 tab PO Q6HR PRN #24 tab 03/07/22 Unknown Rx [Fioricet] Butalb/Acetamin/Caff 50-325-40 1 tab PO Q6HR PRN #24 tab 03/07/22 Unknown Rx [Fioricet] Butalb/Acetaminophen/Caffeine 1 cap PO Q6HR PRN #24 cap 03/07/22 Unknown Rx [Fioricet 50-300-40 mg CAP] methOCARBAMOL [Robaxin TAB] 500 mg PO BID #20 tab 03/07/22 Unknown Rx ED Physical Exam - General Limitations: No Limitations General appearance: alert, in no apparent distress - Head Head exam: Present: atraumatic, normocephalic - Eye Eye exam: Present: normal appearance, PERRL - ENT ENT exam: Present: mucous membranes moist - Neck Neck exam: Present: normal inspection - Respiratory Respiratory exam: Present: normal lung sounds bilaterally. Absent: respiratory distress - Cardiovascular Cardiovascular Exam: Present: regular rate, normal rhythm. Absent: systolic murmur, diastolic murmur, rubs, gallop - GI/Abdominal GI/Abdominal exam: Present: soft, normal bowel sounds. Absent: distended, tenderness - Extremities Exam Extremities exam: Present: normal inspection - Back Exam Back exam: Present: normal inspection - Neurological Exam Neurological exam: Present: alert, oriented X3, CN II-XII intact. Absent: motor sensory deficit - Psychiatric Psychiatric exam: Present: normal affect, normal mood - Skin Skin exam: Present: warm, dry, intact, normal color. Absent: rash ED Course Vital Signs 03/07/22 03/07/22 03/07/22 12:10 15:26 15:31 Temperature 98.2 F Pulse Rate 101 H 94 H 92 H Respiratory 20 17 14 Rate Blood Pressure 139/67 136/67 O2 Sat by Pulse 98 99 Oximetry 03/07/22 03/07/22 03/07/22 15:45 16:01 16:15 Temperature Pulse Rate 89 89 87 Respiratory 19 15 14 Rate Blood Pressure 136/67 136/67 136/67 O2 Sat by Pulse 98 96 99 Oximetry 03/07/22 03/07/22 16:31 16:45 Temperature Pulse Rate 87 91 H Respiratory 16 17 Rate Blood Pressure 136/67 136/67 O2 Sat by Pulse 100 100 Oximetry ED Medical Decision Making - Radiology Data Radiology results: report reviewed - Medical Decision Making On repeat evaluation at approximately 7:05 PM the patient states her headaches completely resolved. The is resting in bed comfortably eating dinner Critical care attestation.: If time is entered above; I have spent that time in minutes in the direct care of this critically ill patient, excluding procedure time. ED Disposition Clinical Impression: Headache Disposition: 01 HOME / SELF CARE / HOMELESS Is pt being admited?: No Does the pt Need Aspirin: No Condition: Stable Instructions: General Headache Without Cause Additional Instructions: Please do not take Flexeril while you are taking Robaxin Prescriptions: Butalb/Acetaminophen/Caffeine [Fioricet 50-300-40 mg CAP] 1 cap PO Q6HR PRN #24 cap PRN Reason: Headache Butalb/Acetamin/Caff 50-325-40 [Fioricet] 1 tab PO Q6HR PRN #24 tab PRN Reason: Headache Butalb/Acetamin/Caff 50-325-40 [Fioricet] 1 tab PO Q6HR PRN #24 tab PRN Reason: Headache methOCARBAMOL [Robaxin TAB] 500 mg PO BID #20 tab Referrals: SCAR MALIK MD [Staff Physician] - 3-5 Days PRIMARY CAREMD [Primary Care Provider] - 3-5 Days Time of Disposition: 19:22
[2022-03-07 20:50] VITALS: BP 136/67
== END 2022-03-07 19:45 | disposition home or self-care (01) ==
LOC: ED 11:54
DX: R51.9 Headache, unspecified (principal); I10 Essential (primary) hypertension; Z88.6 Allergy status to analgesic agent
CPT/HCPCS: 70450; 96365; 96375; 99283; J1200; J2405; J2765; J2800; J3010; J7050

== ENCOUNTER 2022-05-15 15:43 | Emergency (ER) | payer MEDICARE ==
[2022-05-15 17:09] LABS: Basophils % (Auto) 0.6 % (0.0-1.8); Eosinophils # (Auto) 0.2 K/mm3 (0.0-0.4); Hematocrit 31.1 % (30.3-42.9); Hemoglobin 10.1 gm/dl (10.1-14.3); Lymphocytes # (Auto) 3.1 K/mm3 (1.2-5.4); Lymphocytes % (Auto) 36.7 % (13.4-35.0); Mean Corpuscular HGB Conc 32 % (30-34); Mean Corpuscular Volume 87 fl (79-97); Monocytes # (Auto) 0.4 K/mm3 (0.0-0.8); Monocytes % (Auto) 5.3 % (0.0-7.3); Platelet Count 235 K/mm3 (140-440); Red Blood Count 3.58 M/mm3 (3.65-5.03); Red Cell Distribution Width 15.5 % (13.2-15.2)
[2022-05-15 17:27] LABS: Alanine Aminotransferase 12 units/L (7-56); Albumin 4.4 g/dL (3.9-5); BUN/Creatinine Ratio 24; Blood Urea Nitrogen 39 mg/dL (7-17); Calcium 9.6 mg/dL (8.4-10.2); Hemolysis Index 6
--- NOTE | 2022-05-15 17:45 | XRay Report ---
CHEST 2 VIEWS INDICATION / CLINICAL INFORMATION: sob. COMPARISON: None available. FINDINGS: SUPPORT DEVICES: None. HEART / MEDIASTINUM: No significant abnormality. LUNGS / PLEURA: No significant pulmonary or pleural abnormality. No pneumothorax. ADDITIONAL FINDINGS: No significant additional findings. IMPRESSION: 1. No acute findings. Signer Name: Marck Gunter MD Signed: 05/15/2022 5:41 PM Workstation Name: [id number]
[2022-05-16] MEDS ORDERED: METOCLOPRAMIDE 10 MG/2 ML INJ IV ONE (01:10)
[2022-05-16] MEDS ORDERED: SODIUM CHLORIDE 0.9% 500 ML 500 ML IV ONE (01:10)
--- NOTE | 2022-05-16 01:11 | Emergency Department Report ---
ED General Adult HPI - General Chief complaint: Dyspnea/Respdistress Stated complaint: DIZZY/WEAK/SOB Time Seen by Provider: 05/16/22 00:59 Source: patient, RN notes reviewed, old records reviewed Mode of arrival: Ambulatory Limitations: No Limitations - History of Present Illness Initial comments: The patient was evaluated in the emergency department for symptoms described in the history of present illness. He/she was evaluated in the context of the global COVID-19 pandemic, which necessitated consideration that the patient might be at risk for infection with the virus that causes COVID-19. Institutional protocols and algorithms that pertain to the evaluation of patients at risk for COVID-19 are in a state of rapid change based on information released by regulatory bodies including the CDC and federal and state organizations. These policies and algorithms were followed during the patient's care in the emergency department. Please note that these policies, procedures and recommendations changed on a rapid basis. Primary care doctor: Dr. You Hatifeld Past medical history: Gastric cancer, took oral chemotherapy, stroke, residual minimal left-sided deficits, hypertension, possible high cholesterol, chronic pain syndrome. This patient is a 76-year-old female, with a history of cataracts, who presents to the department today with a complaint of nonspecific dizziness, shortness of breath, and generalized headache. There is no midline neck pain, chest pain, abdominal pain, vomiting, diaphoresis or urinary symptoms. She currently denies chest pain. She has not had chest pain. She is COVID-19 vaccinated. She denies loss of taste and smell. She reports she is on a number of chronic medications. She does not believe her chronic medications have been changed. She denies sick contacts. The headache is generalized, not sudden or thunderclap in nature, not maximal in intensity, not described as the worst headache of her life. There is no complaint of loss of vision, jaw Pain, or jaw claudication -: Gradual, days(s) Location: head Severity scale (0 -10): 0 Quality: aching Consistency: intermittent Improves with: rest Worsens with: movement - Related Data Home Medications Medication Instructions Recorded Confirmed Last Taken Amlodipine Besylate 5 mg PO DAILY 08/22/13 03/19/16 01/01/16 05:00 Clopidogrel Bisulfate [Clopidogrel] 75 mg PO DAILY 08/22/13 03/19/16 12/25/15 Losartan Potassium 100 mg PO DAILY 08/22/13 03/19/16 01/01/16 05:00 Simvastatin 40 mg PO DAILY 08/22/13 03/19/16 12/30/15 Spironolactone [Aldactone] 25 mg PO DAILY 08/22/13 03/19/16 12/31/15 Aspirin [Aspirin BABY CHEW TAB] 81 mg PO DAILY 08/23/13 03/19/16 12/25/15 Cholecalciferol (Vitamin D3) 1,000 unit PO DAILY 08/23/13 03/19/16 12/31/15 [Vitamin D3] diphenhydrAMINE [Benadryl CAP] 50 mg PO PRN PRN 08/23/13 03/19/16 12/30/15 hydroCHLOROthiazide [HCTZ] 25 mg PO QDAY 08/23/13 03/19/16 12/31/15 raNITIdine HCL [Ranitidine 150mg 150 mg PO BID 08/23/13 03/19/16 12/30/15 Cap] Previous Rx's Medication Instructions Recorded Last Taken Type predniSONE 10 mg PO BID 3 Days #6 tab 10/24/21 Unknown Rx Metoclopramide [Reglan] 10 mg PO QID PRN #30 tablet 05/16/22 Unknown Rx Allergies Allergy/AdvReac Type Severity Reaction Status Date / Time codeine AdvReac Mild Itching Verified 05/15/22 15:58 morphine AdvReac Mild Itching Verified 05/15/22 15:58 ED Review of Systems ROS: Stated complaint: DIZZY/WEAK/SOB Other details as noted in HPI Constitutional: denies: chills, fever Eyes: denies: eye discharge, vision change ENT: denies: epistaxis Respiratory: shortness of breath. denies: cough, wheezing Cardiovascular: denies: chest pain Gastrointestinal: denies: abdominal pain, vomiting, diarrhea Genitourinary: denies: dysuria Musculoskeletal: back pain, arthralgia, myalgia Skin: denies: lesions Neurological: headache, weakness (Chronic wound) Hematological/Lymphatic: denies: easy bleeding ED Past Medical Hx - Past Medical History Hx Hypertension: Yes (1961) Hx CVA: Yes Hx Heart Attack/AMI: No Hx GERD: Yes Hx Renal Disease: No Hx Arthritis: Yes Hx Seizures: No Hx Asthma: No Additional medical history: "nerve damage on my left side" - Surgical History Additional Surgical History: hyst. 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 "carotid surgery". ortho surg of left foot - Social History Smoking Status: Never Smoker Substance Use Type: None - Medications Home Medications: Home Medications Medication Instructions Recorded Confirmed Last Taken Type Amlodipine Besylate 5 mg PO DAILY 08/22/13 03/19/16 01/01/16 05:00 History Clopidogrel Bisulfate [Clopidogrel] 75 mg PO DAILY 08/22/13 03/19/16 12/25/15 History Losartan Potassium 100 mg PO DAILY 08/22/13 03/19/16 01/01/16 05:00 History Simvastatin 40 mg PO DAILY 08/22/13 03/19/16 12/30/15 History Spironolactone [Aldactone] 25 mg PO DAILY 08/22/13 03/19/16 12/31/15 History Aspirin [Aspirin BABY CHEW TAB] 81 mg PO DAILY 08/23/13 03/19/16 12/25/15 History Cholecalciferol (Vitamin D3) 1,000 unit PO DAILY 08/23/13 03/19/16 12/31/15 History [Vitamin D3] diphenhydrAMINE [Benadryl CAP] 50 mg PO PRN PRN 08/23/13 03/19/16 12/30/15 Hi story hydroCHLOROthiazide [HCTZ] 25 mg PO QDAY 08/23/13 03/19/16 12/31/15 History raNITIdine HCL [Ranitidine 150mg 150 mg PO BID 08/23/13 03/19/16 12/30/15 History Cap] predniSONE 10 mg PO BID 3 Days #6 tab 10/24/21 Unknown Rx Metoclopramide [Reglan] 10 mg PO QID PRN #30 tablet 05/16/22 Unknown Rx ED Physical Exam - General Limitations: No Limitations General appearance: alert, in no apparent distress - Head Head exam: Present: atraumatic, normocephalic - Eye Eye exam: Present: normal appearance, EOMI, other (Visual acuity is intact to finger counting and color perception at a close distance). Absent: nystagmus - ENT ENT exam: Present: normal exam, normal orophraynx, mucous membranes moist, normal external ear exam - Neck Neck exam: Present: normal inspection, full ROM. Absent: tenderness, meningismus - Respiratory Respiratory exam: Present: normal lung sounds bilaterally. Absent: respiratory distress, wheezes, rales, rhonchi, stridor, decreased breath sounds - Cardiovascular Cardiovascular Exam: Present: regular rate, normal rhythm, normal heart sounds. Absent: bradycardia, tachycardia, irregular rhythm, systolic murmur, diastolic murmur, rubs, gallop - GI/Abdominal GI/Abdominal exam: Present: soft. Absent: distended, tenderness, guarding, rebound, rigid, pulsatile mass - Extremities Exam Extremities exam: Present: normal inspection, full ROM, other (2+ pulses noted in the bilateral upper and lower extremities. There is no palpable cord. negative Homans sign. Muscular compartments are soft. The pelvis is stable.). Absent: pedal edema, calf tenderness - Back Exam Back exam: Present: normal inspection. Absent: tenderness, CVA tenderness (R), CVA tenderness (L), paraspinal tenderness, vertebral tenderness - Neurological Exam Neurological exam: Present: alert, oriented X3, normal gait, other (There is no facial droop. The tongue is midline. EOMI. 5 out of 5 strength in 4 extremities. There is no past-pointing. There is no pronator drift. There is normal [id number]. There is a steady gait) - Psychiatric Psychiatric exam: Present: anxious - Skin Skin exam: Present: warm, dry, intact, normal color. Absent: rash ED Course Vital Signs 05/15/22 05/15/22 05/16/22 15:54 21:57 00:57 Temperature 98.3 F 98.3 F Pulse Rate 93 H 95 H Respiratory 14 20 Rate Blood Pressure 158/72 173/74 [Right] O2 Sat by Pulse 100 100 100 Oximetry O2 Sat by Pulse Oximetry [ Digit-Finger] 05/16/22 05/16/22 05/16/22 01:01 01:15 01:31 Temperature Pulse Rate 85 85 87 Respiratory 14 16 13 Rate Blood Pressure [Right] O2 Sat by Pulse 100 Oximetry O2 Sat by Pulse Oximetry [ Digit-Finger] 05/16/22 05/16/22 05/16/22 01:45 02:25 02:31 Temperature Pulse Rate 84 Respiratory 11 L Rate Blood Pressure [Right] O2 Sat by Pulse 100 100 Oximetry O2 Sat by Pulse Oximetry [ Digit-Finger] 05/16/22 05/16/22 02:33 02:47 Temperature Pulse Rate 78 Respiratory 16 Rate Blood Pressure 138/66 [Right] O2 Sat by Pulse 98 Oximetry O2 Sat by Pulse 100 Oximetry [ Digit-Finger] - Reevaluation(s) Reevaluation #1: 05/16/22 02:16 Differential diagnosis, including but not limited to: Polypharmacy, orthostasis, obstructive sleep apnea, pneumonia, congestive heart failure, coronary artery disease, UTI, deconditioning, fibromyalgia Assessment and plan: 76-year-old female, who is clinically sober, with a GCS of 15, who is ambulatory with a steady gait, with an NIH score of 0, with nonspecific complaints of dizziness, headache, shortness of breath, without neck pain, chest pain, or abdominal pain. Her EKG is unchanged x2. She is a mbulatory with a steady gait, with no cerebellar signs. Troponin negative x1 in the context of days of symptoms. Advanced age and cardiovascular risk factors are reviewed and appreciated, but given lack of chest pain, vomiting, diaphoresis and exertional shortness of breath, EKG unchanged x2, I think atypical presentation of acute coronary syndrome is very unlikely. We will obtain noncontrast CT scan of the brain, treat her supportively and symptomatically. Laboratory studies remarkable for very mild dehydration. Oral fluids and IV fluids. We have requested patient's medications be reconciled. I am currently awaiting home medication list. I discussed this plan of care with the patient. She articulates understanding. 05/16/22 02:30 05/16/22 03:35 Home medications include Percocet 10/325 Valium 10 mg Irbesartan 150 mg Spironolactone 25 mg. Plavix 75 mg. Simvastatin 40 mg. Potassium chloride 10 M EQ's. Fioricet as needed Cyclobenzaprine Metoprolol 25. HCTZ 50. Benadryl 50 mg. Magnesium 400 mg Suspect polypharmacy component. Have advised patient is discussed with her primary care doctor, and de-escalate sedating medications. She is observed in this department for hours without clinical decompensation. - Pulse Oximetry Interpretation Digit-Finger Initial Pulse Oximetry Readin O2 Sat by Pulse Oximetry: 100 Actions Taken: none ED Medical Decision Making - Lab Data Result diagrams: 05/15/22 16:32 05/15/22 16:32 Vital Signs 05/15/22 05/15/2222 15:54 21:57 00:57 Temperature 98.3 F 98.3 F Pulse Rate 93 H 95 H Respiratory 14 20 Rate Blood Pressure 158/72 173/74 [Right] O2 Sat by Pulse 100 100 100 Oximetry 05/16/22 05/16/22 05/16/22 01:01 01:15 01:31 Temperature Pulse Rate 85 85 87 Respiratory 14 16 13 Rate Blood Pressure [Right] O2 Sat by Pulse 100 Oximetry Lab Results 05/15/22 05/15/22 05/16/22 Range/Units 16:32 16:32 01:21 WBC 8.4 (4.5-11.0) K/mm3 RBC 3.58 L (3.65-5.03) M/mm3 Hgb 10.1 (10.1-14.3) gm/dl Hct 31.1 (30.3-42.9) % MCV 87 (79-97) fl MCH 28 (28-32) pg MCHC 32 (30-34) % RDW 15.5 H (13.2-15.2) % Plt Count 235 (140-440) K/mm3 Lymph % (Auto) 36.7 H (13.4-35.0) % [place] % (Auto) 5.3 (0.0-7.3) % Eos % (Auto) 3.0 (0.0-4.3) % Baso % (Auto) 0.6 (0.0-1.8) % Lymph # (Auto) 3.1 (1.2-5.4) K/mm3 [place] # (Auto) 0.4 (0.0-0.8) K/mm3 Eos # (Auto) 0.2 (0.0-0.4) K/mm3 Baso # (Auto) 0.0 (0.0-0.1) K/mm3 Seg Neutrophils % 54.4 (40.0-70.0) % Seg Neutrophils # 4.6 (1.8-7.7) K/mm3 Sodium 141 (137-145) mmol/L Potassium 4.5 (3.6-5.0) mmol/L Chloride 104.2 (98-107) mmol/L Carbon Dioxide 24 (22-30) mmol/L Anion Gap 17 mmol/L BUN 39 H (7-17) mg/dL Creatinine 1.6 H (0.6-1.2) mg/dL Estimated GFR 38 ml/min BUN/Creatinine Ratio 24 % Glucose 132 H (65-100) mg/dL Calcium 9.6 (8.4-10.2) mg/dL Total Bilirubin 0.20 (0.1-1.2) mg/dL AST 17 (5-40) units/L ALT 12 (7-56) units/L Alkaline Phosphatase 102 (35-129) units/L Total Creatine Kinase 115 (30-135) units/L CK-MB (CK-2) 2.0 (0.0-4.0) ng/mL CK-MB (CK-2) Rel Index 1.7 (0-4) Troponin T < 0.010 (0.00-0.029) ng/mL Total Protein 7.2 (6.3-8.2) g/dL Albumin 4.4 (3.9-5) g/dL Albumin/Globulin Ratio 1.6 % Lipase 41 (13-60) units/L Acetaminophen 5.0 L (10.0-30.0) ug/mL - EKG Data -: EKG Interpreted by Co EKG shows normal: sinus rhythm Rate: normal - EKG Data 05/16/22 02:11 The EKG is interpreted at 01: 1 6 Sinus rhythm, with a rate of 83 bpm. Normal axis, normal P wave axis, QTC 4 5 6 ms. There is motion artifact. This is an abnormal EKG. This is not a STEMI. The first EKG is performed yesterday, at 15: 5 9. EKG #1 is unchanged from EKG #2. EKG #1 shows a sinus rhythm, of 89 bpm. There is normal axis, normal intervals, normal P wave axis, QTC 4 4 6 ms. Nonspecific flattening, abnormal EKG, however, not a STEMI - Radiology Data Radiology results: pending, report reviewed, image reviewed CHEST 2 VIEWS INDICATION / CLINICAL INFORMATION: sob. COMPARISON: None available. FINDINGS: SUPPORT DEVICES: None. HEART / MEDIASTINUM: No significant abnormality. LUNGS / PLEURA: No significant pulmonary or pleural abnormality. No pneumothorax. ADDITIONAL FINDINGS: No significant additional findings. IMPRESSION: 1. No acute findings. Signer Name: Marck Gunter MD Signed: 05/15/2022 4:41 PM Workstation Name: [id number] Critical care attestation.: If time is entered above; I have spent that time in minutes in the direct care of this critically ill patient, excluding procedure time. ED Disposition Clinical Impression: Dehydration, Headache, Polypharmacy, Shortness of breath Disposition: HOME / SELF CARE / HOMELESS Is pt being admited?: No Does the pt Need Aspirin: No Condition: Good Additional Instructions: As we discussed, we suspect polypharmacy is contributing to patient's symptoms. Patient is on a number of sedating and habit-forming medications, such as Percocet, Valium, Fioricet, Flexeril, and Benadryl. Recommend continuing current outpatient medications with the exception of the aforementioned, and following up with your outpatient primary care doctor to investigate de- escalation of sedating medications. Do not drive, operate motor vehicles Rest and avoid heavy lifting and strenuous physical activity. Alternate ice packs and heat packs as needed for physical pain. Consider initiating o utpatient physical therapy and rehabilitation. Please return to the department right away with any new, worsened or different symptoms. Please return to the emergency room right away with new pain, worsened pain, migration of pain, projectile vomiting, change in mental status, confusion, inability tolerate liquid feeds, new, worsened or different symptoms not present on the initial emergency room evaluation May consider low-dose ibuprofen [id number], 200 mg by mouth, with food, every 6-8 hours as needed for physical pain, alternate with [id number] Tylenol, 325 mg by mouth, every 4-6 hours as needed for physical pain. May take the prescribed Reglan medication as needed for nausea, vomiting and headache. Referrals: AMBAR HATFIELD MD [Staff Physician] - 3-5 Days
[2022-05-16 02:13] LABS: Color,Urine Yellow (Yellow)
[2022-05-16 02:18] LABS: WBC,Urine < 1.0 /HPF (0.0-6.0)
--- NOTE | 2022-05-16 02:30 | Cat Scan Report ---
. CT HEAD WITHOUT CONTRAST INDICATION / CLINICAL INFORMATION: Headache and nonspecific dizziness. TECHNIQUE: All CT scans at this location are performed using CT dose reduction for ALARA by means of automated e xposure control. COMPARISON: 03/07/2022 FINDINGS: There is an area of low attenuation within the right parietal lobe which corresponds to area of abnor mality on prior examination as well. Associated encephalomalacia prior area of infarct. No acute hemo rrhage is seen. No midline shift or mass effect. Visualized sinuses are clear. ADDITIONAL FINDINGS: None. IMPRESSION: 1. Area of prior infarct within the right parietal lobe with associated encephalomalacia. No acute he morrhage. Signer Name: Julio Cesar Singh MD Signed: 05/16/2022 2:26 AM Workstation Name: [id number]
[2022-05-16 02:48] VITALS: BP 138/66
--- NOTE | 2022-05-16 22:36 | Electrocardiograph Report ---
[facility] Test Date: 2022-05-15 Test Time: 15:59:45 Pat Name: ELIO MOELLER Department: Room: Gender: F Financial Aid Administrator: KAVON : 1945 Requested By: LUPE KUO Order Number: [id number] Reading MD: Bhargavi Tam Measurements Intervals [place] Rate: 89 P: 60 [place]: 145 QRS: 16 QRSD: 95 T: 80 QT: 367 QTc: 446 Interpretive Statements Sinus rhythm No previous ECG available for comparison Electronically Signed On 05-16-2022 22:35:55 EDT by Bhargavi Tam
--- NOTE | 2022-05-16 22:43 | Electrocardiograph Report ---
[facility] Test Date: 2022-05-16 Test Time: 01:16:51 Pat Name: ELIO MOELLER Department: Room: Gender: F Pediatric Neuropsychologist: VILMA : 1945 Requested By: ANH BIRD Order Number: [id number] Reading MD: Bhargavi Tam Measurements Intervals [place] Rate: 83 P: 78 [place]: 152 QRS: 22 QRSD: 103 T: 77 QT: 387 QTc: 456 Interpretive Statements Sinus rhythm Compared to ECG 05/15/2022 15:59:45 No significant changes Electronically Signed On 05-16-2022 22:43:21 EDT by Bhargavi Tam
== END 2022-05-16 04:07 | disposition home or self-care (01) ==
LOC: ED 15:43
DX: E86.0 Dehydration (principal); R51.9 Headache, unspecified; R06.02 Shortness of breath
CPT/HCPCS: 36415; 70450; 71046; 80053; 81001; 82550; 82553; 83690; 84443; 84484; 85025; 93005; 96374; 99284; J2765; J7040; 80320; G0480